=== PATIENT | male | born 2000 | race Caucasian/White ===

== ENCOUNTER 2020-03-10 23:39 | Emergency (ER) | payer SELFPAY ==
[~2020-03-10] VITALS: Ht 162.6 cm; Wt 54.4 kg
[2020-03-10 23:39] VITALS: BP 152/96
--- NOTE | 2020-03-10 23:50 | NUR ---
pt c/o cough and CHENG x 2 day, no fever reported. denies sob. spo2 97% ra. no resp distress noted. productive cough present. pt states he has chest pain when coughing. rates pain 5/10 and describes it as soreness. lung sounds clear all throughout. no use of accessory muscle. vss. a&o x4. steady gait. nka. no previous medical hx.
[2020-03-11 01:25] VITALS: BP 154/90
--- NOTE | 2020-03-11 01:25 | NUR ---
Patient discharged with v/s stable. Written and verbal after care instructions given and explained. Patient alert, oriented and verbalized understanding of instructions. Ambulatory with steady gait. All questions addressed prior to discharge. ID band removed. Patient advised to follow up with PMD. Rx of acetaminophen, and diphenhydramine given. Patient educated on indication of medication including possible reaction and side effects. Opportunity to ask questions provided and answered.
== END 2020-03-11 01:25 | disposition home or self-care (01) ==
LOC: MED 23:39 → EEVIPCON 23:39 → MED 03-11 01:25
DX: R06.00 Dyspnea, unspecified (principal); Z20.828 Contact with and (suspected) exposure to other viral communicable diseases; R51 Headache; F41.9 Anxiety disorder, unspecified
CPT/HCPCS: 36415; 71045; 87635; 99284; Q0092; 99283